=== PATIENT | female | born 1955 | race African-American/Black ===

== ENCOUNTER 2016-05-12 10:00 | Outpatient (RCR) | payer MEDICAID ==
[~2016-05-12 10:00] MED LIST: ALBUTEROL0.83 MG/ML IH; AMITRIPTYLINE H50 M1 PO; ASPIRIN 32325 MG/TAB PO; ATROVENT I0.2 MG/1 M IH; BACTRIM DS 8001 TAB PO; BENADRYL25 M2; BENADRYL25 M2 PO; CLEOCIN HC150 MG/CAP PO; COLACE 100100 MG/CAP PO; CUTIVATE15GMOINT TOP; DAZIDOX10 MG PO; DEPAKOTE ER 50500 MG PO; DEPAKOTE500 MG PO; DESYREL 100MG100 MG PO; DIPHENHYDRAMINE25 MG PO; FLAGYL500 MG PO; FLONASE NASAL S16 GM NS; FLOVENT 110MCG7.9 GM IH; IMODIUM 2MG CAPS2 MG PO; IPRATROPIUM BROM3 M1 IH; IRON324 M1 PO; IRON325 M1 PO; LASIX 40MG TABL40 MG PO; LASTACAFT OP; LEVAQUIN 5500 MG/TA1 PO; LEVAQUIN 750MG750 M1 PO; LOPRESSOR 225 MG/TAB PO; LUNESTA 1MG TAB1 MG; LUNESTA 1MG TAB1 MG PO; MEDROL 4MG DOSPA4 MG PO; NIZORAL CREAM15 GM TP; NORCO 325 MG-51 TAB PO; NORCO 325 MG-7.1 TAB PO; OPTIVE SENSITI0.4 ML OP; OXYCONTIN 20MG20 MG PO; PATADAY 2.5 ML2.5 ML OP; PATADAY 2.5 ML2.5 ML OU; PATANOL OPHTHALM5 ML OU; PERCOCET 325 MG1 TA2 PO; PERCOCET 325 MG1 TAB PO; PREDNISONE20 MG PO; PRENATAL PO; PRENATAL VITAMI1 TAB PO; PRENATAL1 TA2 PO; PRILOSEC 20MG20 MG PO; PRINIVIL10 MG PO; PRINIVIL5 MG PO; PRO AIR INH; PROAIR HFA0.09 MG/AC IH; PROZAC 20MG20 MG PO; PROZAC PO; QVAR0.04 MG/AC IH; REFRESH 1 ML1 ML OP; RT ALBUTER2.5 MG/0.5 IH; RT SPIRIVA18 MCG IH; SYNTHROID 0.0.025 MG PO; SYNTHROID0.05 MG/TA PO; TOPROL XL 25MG25 MG PO; TYLENOL 325MG325 MG PO; UNABLE; VALIUM 10MG10 MG/TAB PO; VALIUM 2MG T2 MG/TAB PO; ZESTRIL 20MG TA20 MG PO; ZITHROMAX Z PA250 MG PO; ZOCOR 20MG20 MG PO; ZOFRAN 4MG T4 MG/TAB PO; ZOFRAN ODT4 MG PO; ZYRTEC 10MG10 MG PO; [UNRECOGNIZED DRUG - CODE] PO; [UNRECOGNIZED DRUG - OTHER] PO
== END 2016-05-15 13:24 | disposition home or self-care (01) ==
LOC: MKS.ESL.PT 10:00
DX: R26.81 Unsteadiness on feet (principal)
CPT/HCPCS: G0283-GP

== ENCOUNTER → 2016-05-15 | Outpatient (CLI) | payer MEDICAID ==
[~2016-05-15] MED LIST changes: +BUSPAR5 MG PO; +DOXYCYCLINE 10100 MG PO
== END ==
LOC: MC.RAD 12:54
DX: Z12.31 Encounter for screening mammogram for malignant neoplasm of breast (principal)

== ENCOUNTER 2016-05-23 07:55 | Day surgery (SDC) | payer MEDICAID ==
[2016-05-23] VITALS (8 sets, daily range): BP systolic 94–134; BP diastolic 43–83; PULSE 50–64; TEMP 96.8
[~2016-05-23] VITALS: Ht 170.2 cm; Wt 108.2 kg
[~2016-05-23 07:55] MED LIST changes: -BUSPAR5 MG PO; -DOXYCYCLINE 10100 MG PO
== END 2016-05-23 13:50 | disposition home or self-care (01) ==
LOC: SDCO 07:55
DX: K62.5 Hemorrhage of anus and rectum (principal); K64.8 Other hemorrhoids; K64.4 Residual hemorrhoidal skin tags; Z96.641 Presence of right artificial hip joint; Z96.651 Presence of right artificial knee joint
CPT/HCPCS: J0690; J1100; J1885; J2250; J2405; J2704; J3010; J7120

== ENCOUNTER 2016-11-07 13:40 | Emergency (ER) | payer MEDICAID ==
[~2016-11-07] VITALS: Ht 170.2 cm; Wt 104.5 kg
[2016-11-07 13:45] VITALS: TEMP 99.1
[2016-11-07] MEDS ORDERED: BUSPAR5 MG PO (13:52)
[2016-11-07 14:27] LABS: BASO % 0.3 % (0.0-2.0); EOS # 0.2 (0.0-0.7); EOS % 1.4 % (0-4.0); GRAN # 6.2 (1.4-6.5); GRAN % 56.9 % (42.2-75.2); HEMOGLOBIN 13.8 g/dl (12.5-16.0); MEAN CELL VOLUME 98 fl (80.0-100.0); MEAN CORPUSCULAR HEMOGLOBIN 32 pg (27.0-31.0); MEAN CORPUSCULAR HGB CONC 33 g/dl (33.0-37.0); MEAN PLATELET VOLUME 11.9 fl (7.4-10.4); MONO # 0.4 (0.1-0.6); MONO % 4.1 % (1.7-9.3); PLATELET COUNT 246 K/mm3 (130-400); REDCELL DISTRIBUTION WIDTH-CV 14.6 % (11.5-14.5); WHITE BLOOD COUNT 10.8 K/mm3 (4.8-10.8)
[2016-11-07 14:41] LABS: ADJUSTED CALCIUM 9.6 mg/dL (8.4-10.2); ALBUMIN 4.1 gm/dL (3.5-5.0); BILIRUBIN,TOTAL 0.4 mg/dL (0.0-1.0); CALCIUM 9.7 mg/dL (8.4-10.2); CREATININE, serum 0.76 mg/dL (0.52-1.25); POTASSIUM 3.6 mmol/L (3.4-5.0); TOTAL PROTEIN 7.9 gm/dL (6.4-8.2)
[2016-11-07] MEDS ORDERED: PREDNISONE20 MG PO (16:42)
[2016-11-07] MEDS ORDERED: DOXYCYCLINE 10100 MG PO (16:50)
[2016-11-07 17:44] VITALS: BP 119/64; PULSE 74
== END 2016-11-07 17:45 | disposition home or self-care (01) ==
LOC: COL.ER 13:40
PROVIDERS: Emergency Medicine
DX: J44.1 Chronic obstructive pulmonary disease with (acute) exacerbation (principal); Z79.82 Long term (current) use of aspirin
CPT/HCPCS: J1170; J2550; J7512

== ENCOUNTER 2017-03-10 02:24 | Inpatient (IN) | payer MEDICAID ==
[~2017-03-10] VITALS: Ht 170.2 cm; Wt 92.8 kg
[~2017-03-10 02:24] MED LIST changes: +BUSPAR5 MG PO; +DOXYCYCLINE 10100 MG PO
[2017-03-10 02:47] LABS: BASO % 0.1 % (0.0-2.0); GRAN # 7.3 (1.4-6.5); GRAN % 82.5 % (42.2-75.2); HEMATOCRIT 40.3 % (37.0-47.0); HEMOGLOBIN 13.5 g/dl (12.5-16.0); LYMPH # 0.7 (1.2-3.4); LYMPH % 8.2 % (20.0-51.0); MEAN CELL VOLUME 97 fl (80.0-100.0); MEAN CORPUSCULAR HEMOGLOBIN 32 pg (27.0-31.0); MEAN CORPUSCULAR HGB CONC 34 g/dl (33.0-37.0); MEAN PLATELET VOLUME 11.3 fl (7.4-10.4); MONO # 0.8 (0.1-0.6); MONO % 8.8 % (1.7-9.3); PLATELET COUNT 196 K/mm3 (130-400); RED BLOOD COUNT 4.17 M/mm3 (4.10-5.30); REDCELL DISTRIBUTION WIDTH-CV 15.2 % (11.5-14.5)
[2017-03-10 03:13] LABS: ALBUMIN 4.1 gm/dL (3.5-5.0); BILIRUBIN,TOTAL 0.4 mg/dL (0.0-1.0); CALCIUM 9.5 mg/dL (8.4-10.2); CREATININE, serum 0.64 mg/dL (0.52-1.25); POTASSIUM 3.5 mmol/L (3.4-5.0)
[2017-03-10 03:21] LABS: INFLUENZA A NEGATIVE; INFLUENZA B NEGATIVE
[2017-03-10 03:37] LABS: COLLECTION METHOD CLEAN CATCH
[2017-03-10 03:49] LABS: MUCOUS Present /lpf; PH 8 (5-8); URINE APPEARANCE Clear; URINE BACTERIA Rare /hpf; URINE BILIRUBIN Negative (NEGATIVE); URINE BLOOD 2+ (NEGATIVE); URINE COLOR Yellow; URINE GLUCOSE Negative (NEGATIVE); URINE KETONE 1+ (NEGATIVE); URINE LEUKOCYTE ESTERASE Negative (NEGATIVE); URINE NITRATE Negative (NEGATIVE); URINE PROTEIN(semi-quant) Negative (NEGATIVE); URINE RBC >50 /hpf
[2017-03-10] MEDS ORDERED: VALIUM 2MG T2 MG/TAB PO (08:03)
[2017-03-10 08:46] VITALS: BP 111/67; PULSE 77; TEMP 98.6
[2017-03-10 12:04] VITALS: BP 93/49; PULSE 61; TEMP 98.8
[2017-03-10 12:35] VITALS: BP 93/49; PULSE 61; TEMP 98.8
[2017-03-10 15:49] VITALS: BP 122/63; PULSE 92; TEMP 99.5
[2017-03-10 20:20] VITALS: BP 128/59; PULSE 107; TEMP 101.2
[2017-03-11] VITALS (9 sets, daily range): BP systolic 119–134; BP diastolic 7–82; PULSE 97–118; TEMP 98.3–102.1
[2017-03-11 07:40] LABS: BASO % 0.2 % (0.0-2.0); GRAN % 63.9 % (42.2-75.2); HEMATOCRIT 37.4 % (37.0-47.0); HEMOGLOBIN 12.2 g/dl (12.5-16.0); LYMPH # 1.4 (1.2-3.4); LYMPH % 21.5 % (20.0-51.0); MEAN CELL VOLUME 100 fl (80.0-100.0); MEAN CORPUSCULAR HEMOGLOBIN 32 pg (27.0-31.0); MEAN CORPUSCULAR HGB CONC 33 g/dl (33.0-37.0); MEAN PLATELET VOLUME 12.1 fl (7.4-10.4); MONO # 0.9 (0.1-0.6); MONO % 14.1 % (1.7-9.3); PLATELET COUNT 179 K/mm3 (130-400); RED BLOOD COUNT 3.76 M/mm3 (4.10-5.30); REDCELL DISTRIBUTION WIDTH-CV 15.6 % (11.5-14.5)
[2017-03-11 07:54] LABS: CALCIUM 8.5 mg/dL (8.4-10.2); CREATININE, serum 0.73 mg/dL (0.52-1.25); POTASSIUM 3.4 mmol/L (3.4-5.0)
[2017-03-12 00:27] VITALS: BP 108/95; PULSE 130; TEMP 102.8
[2017-03-12 04:35] VITALS: BP 116/66; PULSE 113; TEMP 101.4
[2017-03-12 07:19] LABS: BASO % 0.2 % (0.0-2.0); GRAN # 4.8 (1.4-6.5); GRAN % 54.1 % (42.2-75.2); HEMATOCRIT 37.4 % (37.0-47.0); LYMPH # 3.2 (1.2-3.4); LYMPH % 36.3 % (20.0-51.0); MEAN CELL VOLUME 101 fl (80.0-100.0); MEAN CORPUSCULAR HEMOGLOBIN 32 pg (27.0-31.0); MEAN CORPUSCULAR HGB CONC 32 g/dl (33.0-37.0); MEAN PLATELET VOLUME 11.9 fl (7.4-10.4); MONO # 0.8 (0.1-0.6); MONO % 9.1 % (1.7-9.3); PLATELET COUNT 157 K/mm3 (130-400); RED BLOOD COUNT 3.71 M/mm3 (4.10-5.30); REDCELL DISTRIBUTION WIDTH-CV 15.7 % (11.5-14.5)
[2017-03-12 07:24] LABS: CALCIUM 8.1 mg/dL (8.4-10.2); CREATININE, serum 0.94 mg/dL (0.52-1.25); POTASSIUM 3.6 mmol/L (3.4-5.0)
[2017-03-12 07:30] LABS: HEMOGLOBIN 11.9 g/dl (12.5-16.0)
[2017-03-12 08:03] VITALS: BP 94/61; PULSE 124; TEMP 100.2
[2017-03-12 11:34] VITALS: BP 111/66; PULSE 117; TEMP 100.1
[2017-03-12 15:51] VITALS: BP 100/72; PULSE 106; TEMP 98.6
[2017-03-12 21:17] VITALS: BP 97/62; PULSE 93; TEMP 98.9
[2017-03-13 00:10] VITALS: BP 104/82; PULSE 97; TEMP 99
[2017-03-13 05:17] VITALS: BP 105/57; PULSE 101; TEMP 98.9
[2017-03-13 07:03] LABS: GRAN # 6.4 (1.4-6.5); HEMATOCRIT 38.8 % (37.0-47.0); HEMOGLOBIN 12.2 g/dl (12.5-16.0); LYMPH % 22.1 % (20.0-51.0); MEAN CELL VOLUME 102 fl (80.0-100.0); MEAN CORPUSCULAR HEMOGLOBIN 32 pg (27.0-31.0); MEAN CORPUSCULAR HGB CONC 31 g/dl (33.0-37.0); MONO # 0.5 (0.1-0.6); PLATELET COUNT 182 K/mm3 (130-400); REDCELL DISTRIBUTION WIDTH-CV 15.7 % (11.5-14.5)
[2017-03-13 07:10] LABS: CALCIUM 9.1 mg/dL (8.4-10.2); CREATININE, serum 1.79 mg/dL (0.52-1.25)
[2017-03-13 08:00] VITALS: BP 103/81; PULSE 99; TEMP 98.4
[2017-03-13 11:43] VITALS: BP 109/72; TEMP 98.8
[2017-03-13 12:39] LABS: ALBUMIN 3.9 gm/dL (3.5-5.0); BILIRUBIN,TOTAL 0.3 mg/dL (0.0-1.0); CALCIUM 9.2 mg/dL (8.4-10.2); CREATININE, serum 1.83 mg/dL (0.52-1.25); TOTAL PROTEIN 7.9 gm/dL (6.4-8.2)
[2017-03-13 16:00] VITALS: BP 100/55; PULSE 98; TEMP 98.9
[2017-03-13 16:42] LABS: CALCIUM 8.6 mg/dL (8.4-10.2); CREATININE, serum 1.44 mg/dL (0.52-1.25); POTASSIUM 4.4 mmol/L (3.4-5.0)
[2017-03-13 20:11] VITALS: BP 93/54; PULSE 75; TEMP 98.3
[2017-03-14 00:37] VITALS: BP 118/51; PULSE 74; TEMP 99.4
[2017-03-14 03:04] LABS: COLLECTION METHOD CATHETER
[2017-03-14 03:09] LABS: MUCOUS Present /lpf; PH 6 (5-8); SQUAMOUS EPITHELIAL 0-2 /hpf; URINE APPEARANCE Clear; URINE BACTERIA None Seen /hpf; URINE BILIRUBIN Negative (NEGATIVE); URINE BLOOD Negative (NEGATIVE); URINE COLOR Yellow; URINE GLUCOSE Negative (NEGATIVE); URINE KETONE Negative (NEGATIVE); URINE LEUKOCYTE ESTERASE Negative (NEGATIVE); URINE NITRATE Negative (NEGATIVE); URINE PROTEIN(semi-quant) Negative (NEGATIVE); URINE RBC 0-2 /hpf; URINE UROBILINOGEN Negative (NEGATIVE)
[2017-03-14 07:28] LABS: GRAN # 5.1 (1.4-6.5); LYMPH # 2.3 (1.2-3.4); LYMPH % 28.4 % (20.0-51.0); MEAN CELL VOLUME 101 fl (80.0-100.0); MEAN CORPUSCULAR HGB CONC 31 g/dl (33.0-37.0); MEAN PLATELET VOLUME 12.1 fl (7.4-10.4); MONO # 0.5 (0.1-0.6); MONO % 6.2 % (1.7-9.3); PLATELET COUNT 144 K/mm3 (130-400); RED BLOOD COUNT 3.34 M/mm3 (4.10-5.30); REDCELL DISTRIBUTION WIDTH-CV 15.9 % (11.5-14.5)
[2017-03-14 07:39] LABS: HEMATOCRIT 33.8 % (37.0-47.0); HEMOGLOBIN 10.6 g/dl (12.5-16.0); MEAN CORPUSCULAR HEMOGLOBIN 32 pg (27.0-31.0)
[2017-03-14 07:50] LABS: CALCIUM 8.7 mg/dL (8.4-10.2); CREATININE, serum 0.93 mg/dL (0.52-1.25); POTASSIUM 4.4 mmol/L (3.4-5.0)
[2017-03-14 08:07] VITALS: BP 102/68; PULSE 80; TEMP 98.6
[2017-03-14 12:09] VITALS: BP 108/58; PULSE 86; TEMP 98.8
[2017-03-14 17:10] VITALS: BP 106/62; PULSE 85; TEMP 98.7
[2017-03-14 19:34] VITALS: BP 116/57; PULSE 67; TEMP 98.6
[2017-03-15 00:35] VITALS: BP 122/71; PULSE 68; TEMP 98.4
[2017-03-15 02:48] VITALS: BP 136/66; PULSE 66; TEMP 98.2
[2017-03-15 07:38] VITALS: BP 110/62; PULSE 60; TEMP 97.9
[2017-03-15 07:59] LABS: MEAN CELL VOLUME 100 fl (80.0-100.0); MEAN CORPUSCULAR HGB CONC 31 g/dl (33.0-37.0); MEAN PLATELET VOLUME 12.3 fl (7.4-10.4); PLATELET COUNT 163 K/mm3 (130-400); RED BLOOD COUNT 3.43 M/mm3 (4.10-5.30); REDCELL DISTRIBUTION WIDTH-CV 15.5 % (11.5-14.5)
[2017-03-15 08:12] LABS: CALCIUM 8.8 mg/dL (8.4-10.2); CREATININE, serum 0.74 mg/dL (0.52-1.25); POTASSIUM 4.1 mmol/L (3.4-5.0)
[2017-03-15 08:21] LABS: HEMATOCRIT 34.2 % (37.0-47.0); HEMOGLOBIN 10.7 g/dl (12.5-16.0); MEAN CORPUSCULAR HEMOGLOBIN 31 pg (27.0-31.0)
[2017-03-15] MEDS ORDERED: BENADRYL25 M2 PO (10:10)
[2017-03-15] MEDS ORDERED: ZITHROMAX500 M2 PO (10:11)
[2017-03-15] MEDS ORDERED: DEEP SEA 45 ML45 ML NS (10:14)
[2017-03-15] MEDS ORDERED: PREDNISONE10 MG PO ×2 (10:19→11:38)
[2017-03-15 11:23] LABS: BAND 24 % (0-10); HYPOCHROMIA 2+; LYMPHOCYTE 14 % (20.0-51.0); NEUTROPHILS 53 % (42.0-75.2); PLATELET ESTIMATE NORMAL (NORMAL)
== END 2017-03-15 13:30 | disposition home or self-care (01) | DRG 194 ==
LOC: COL.ER 02:24 → MEDICAL 07:10
PROVIDERS: Emergency Medicine; Internal Medicine Pulmonary Disease; Nurse Practitioner; Physician Assistant
DX: J18.9 Pneumonia, unspecified organism (principal); J44.1 Chronic obstructive pulmonary disease with (acute) exacerbation; N17.9 Acute kidney failure, unspecified; F11.921 Opioid use, unspecified with intoxication delirium; I10 Essential (primary) hypertension; E87.6 Hypokalemia; F17.210 Nicotine dependence, cigarettes, uncomplicated; J06.9 Acute upper respiratory infection, unspecified; G89.29 Other chronic pain; R04.0 Epistaxis
CPT/HCPCS: 99222-AI; 99232-AI; 99233-AI; 99239; G0378; J0456; J0696; J1630; J1644; J1885; J1940; J2550; J2930; J3480; J7030; J7040; J7050; J7512; Q9967

== ENCOUNTER → 2017-05-17 | Outpatient (CLI) | payer MEDICAID ==
[~2017-05-17] MED LIST changes: +DEEP SEA 45 ML45 ML NS; +PREDNISONE10 MG PO; +ZITHROMAX500 M2 PO
== END ==
LOC: MC.RAD 09:33
DX: Z12.31 Encounter for screening mammogram for malignant neoplasm of breast (principal)

== ENCOUNTER → 2017-05-25 | Outpatient (CLI) | payer MEDICAID | LOC: COL.RAD 10:59 | DX: M43.16 Spondylolisthesis, lumbar region (principal); M48.061 Spinal stenosis, lumbar region without neurogenic claudication; G31.9 Degenerative disease of nervous system, unspecified; N28.89 Other specified disorders of kidney and ureter; Z98.890 Other specified postprocedural states; D21.6 Benign neoplasm of connective and other soft tissue of trunk, unspecified | CPT/HCPCS: Q9967 ==

== ENCOUNTER → 2017-09-11 | Outpatient (CLI) | payer MEDICAID | LOC: COL.RAD 09-06 09:45 | DX: D69.6 Thrombocytopenia, unspecified (principal) ==

== ENCOUNTER → 2017-12-03 | Outpatient (CLI) | payer MEDICAID | LOC: COL.RAD 08:55 | DX: M16.12 Unilateral primary osteoarthritis, left hip (principal) | CPT/HCPCS: J3301; Q9967 ==

== ENCOUNTER 2018-04-22 15:36 | Emergency (ER) | payer MEDICAID ==
[~2018-04-22] VITALS: Ht 170.2 cm; Wt 110.5 kg
[2018-04-22 15:47] VITALS: TEMP 98.9
[2018-04-22 16:35] LABS: BASO % 0.1 % (0.0-2.0); EOS # 0.2 (0.0-0.7); EOS % 1.3 % (0-4.0); GRAN # 11.3 (1.4-6.5); GRAN % 67.8 % (42.2-75.2); HEMATOCRIT 42.6 % (37.0-47.0); HEMOGLOBIN 13.8 g/dl (12.5-16.0); LYMPH # 4.1 (1.2-3.4); LYMPH % 24.7 % (20.0-51.0); MEAN CELL VOLUME 97 fl (80.0-100.0); MEAN CORPUSCULAR HEMOGLOBIN 32 pg (27.0-31.0); MEAN CORPUSCULAR HGB CONC 32 g/dl (33.0-37.0); MEAN PLATELET VOLUME 11.9 fl (7.4-10.4); MONO % 5.7 % (1.7-9.3); PLATELET COUNT 225 K/mm3 (130-400); RED BLOOD COUNT 4.38 M/mm3 (4.10-5.30); REDCELL DISTRIBUTION WIDTH-CV 15.2 % (11.5-14.5)
[2018-04-22 16:51] LABS: ALBUMIN 4.1 gm/dL (3.5-5.0); BILIRUBIN,TOTAL 0.4 mg/dL (0.0-1.0); CALCIUM 9.2 mg/dL (8.4-10.2); CREATININE, serum 0.78 mg/dL (0.52-1.25); POTASSIUM 3.7 mmol/L (3.4-5.0); TOTAL PROTEIN 8.4 gm/dL (6.4-8.2)
[2018-04-22 17:02] LABS: C-REACTIVE PROTEIN 15.7 mg/dL (0.0-0.9)
[2018-04-22] MEDS ORDERED: LEVAQUIN 5500 MG/TA1 PO (17:50)
[2018-04-22] MEDS ORDERED: PREDNISONE20 MG PO (17:50)
[2018-04-22] MEDS ORDERED: ZOFRAN ODT4 MG PO (17:50)
[2018-04-22 19:10] VITALS: BP 93/64; PULSE 92
== END 2018-04-22 19:10 | disposition home or self-care (01) ==
LOC: COL.ER 15:36
PROVIDERS: Emergency Medicine
DX: J40 Bronchitis, not specified as acute or chronic (principal); R42 Dizziness and giddiness; R11.2 Nausea with vomiting, unspecified; J44.9 Chronic obstructive pulmonary disease, unspecified; I10 Essential (primary) hypertension; Z79.51 Long term (current) use of inhaled steroids; Z79.82 Long term (current) use of aspirin; Z88.0 Allergy status to penicillin; Z87.891 Personal history of nicotine dependence
CPT/HCPCS: J2405; J7030; J7512

== ENCOUNTER → 2018-05-30 | Outpatient (CLI) | payer MEDICAID | LOC: MHCPAIN 12:48 | DX: G89.29 Other chronic pain (principal); M47.817 Spondylosis without myelopathy or radiculopathy, lumbosacral region; M54.16 Radiculopathy, lumbar region; M53.3 Sacrococcygeal disorders, not elsewhere classified; M48.061 Spinal stenosis, lumbar region without neurogenic claudication | CPT/HCPCS: G0463 ==

== ENCOUNTER → 2018-06-04 | Outpatient (CLI) | payer MEDICAID | LOC: MC.RAD 09:36 | DX: Z12.31 Encounter for screening mammogram for malignant neoplasm of breast (principal) ==

== ENCOUNTER 2018-06-18 11:01 | Emergency (ER) | payer MEDICAID ==
[~2018-06-18] VITALS: Ht 167.6 cm; Wt 110.5 kg
[2018-06-18 12:19] LABS: BASO % 0.1 % (0.0-2.0); EOS # 0.1 (0.0-0.7); EOS % 0.5 % (0-4.0); GRAN # 9.2 (1.4-6.5); HEMATOCRIT 39.8 % (37.0-47.0); HEMOGLOBIN 12.9 g/dl (12.5-16.0); LYMPH # 3.6 (1.2-3.4); LYMPH % 26.7 % (20.0-51.0); MEAN CELL VOLUME 98 fl (80.0-100.0); MEAN CORPUSCULAR HEMOGLOBIN 32 pg (27.0-31.0); MEAN CORPUSCULAR HGB CONC 32 g/dl (33.0-37.0); MEAN PLATELET VOLUME 11.7 fl (7.4-10.4); MONO # 0.5 (0.1-0.6); MONO % 3.4 % (1.7-9.3); PLATELET COUNT 238 K/mm3 (130-400); RED BLOOD COUNT 4.07 M/mm3 (4.10-5.30); REDCELL DISTRIBUTION WIDTH-CV 16.2 % (11.5-14.5)
[2018-06-18 12:22] LABS: INR 1.1 (0.8-3.0); PROTHROMBIN TIME 12.8 SECONDS (9.7-12.8)
[2018-06-18 12:26] LABS: ALANINE AMINOTRANSFERASE < 6 U/L (9-52); ALBUMIN 3.9 gm/dL (3.5-5.0); ALKALINE PHOSPHATASE 96 U/L (50-136); ANION GAP 7 mmol/L (7-16); AST,SGOT 16 U/L (15-37); BILIRUBIN,TOTAL 0.3 mg/dL (0.0-1.0); BLOOD UREA NITROGEN 13 mg/dL (7-17); CALCIUM 9.1 mg/dL (8.4-10.2); CARBON DIOXIDE 31 mmol/L (22-30); CHLORIDE 105 mmol/L (98-107); CREATININE, serum 0.71 (0.52-1.25); GLUCOSE 108 mg/dL (74-106); POTASSIUM 3.4 mmol/L (3.4-5.0); SODIUM 142 mmol/L (137-145); TOTAL PROTEIN 7.8 gm/dL (6.4-8.2)
[2018-06-18 12:37] LABS: TROPONIN-I < 0.012 ng/mL (0.000-0.035)
[2018-06-18] MEDS ORDERED: ZITHROMAX Z PA250 MG PO (12:54)
[2018-06-18] MEDS ORDERED: PREDNISONE20 MG PO (12:54)
[2018-06-18 13:40] VITALS: TEMP 98.8
[2018-06-18 14:52] VITALS: BP 138/78; PULSE 98
== END 2018-06-18 14:54 | disposition home or self-care (01) ==
LOC: COL.ER 11:01
PROVIDERS: Emergency Medicine
DX: J44.1 Chronic obstructive pulmonary disease with (acute) exacerbation (principal); I10 Essential (primary) hypertension; Z79.51 Long term (current) use of inhaled steroids; F17.210 Nicotine dependence, cigarettes, uncomplicated
CPT/HCPCS: J1200; J2310; J2765; J2930; J3475; J7030

== ENCOUNTER → 2019-02-17 | Outpatient (CLI) | payer MEDICAID ==
[~2019-02-17] MED LIST changes: +ALBUTEROL0.83 MG/ML INH; +DICLOZOR1 EACH TOP; +FLOVENT 110MCG7.9 GM INH; +IPRATROPIUM BROM3 M1 INH; +PROAIR HFA0.09 MG/AC INH; +QVAR REDIHALE10.6 GM INH; +RT ADVAIR 228 DISKUS INH; +RT SPIRIVA18 MCG PO
== END ==
LOC: COL.LAB 11:23
DX: J44.9 Chronic obstructive pulmonary disease, unspecified (principal)

== ENCOUNTER 2019-03-15 12:16 | Inpatient (IN) | payer MEDICAID ==
[~2019-03-15] VITALS: Ht 170.2 cm; Wt 99.6 kg
[2019-03-15] VITALS (131 sets, daily range): BP systolic 124; BP diastolic 72; PULSE 91; TEMP 98; O2SAT 95–100
[2019-03-15 13:26] LABS: BASO % 0.2 % (0.0-2.0); EOS % 0.3 % (0-4.0); GRAN # 7.1 (1.4-6.5); GRAN % 72.2 % (42.2-75.2); HEMATOCRIT 41.6 % (37.0-47.0); HEMOGLOBIN 13.6 g/dl (12.5-16.0); LYMPH # 1.9 (1.2-3.4); LYMPH % 18.9 % (20.0-51.0); MEAN CELL VOLUME 97 fl (80.0-100.0); MEAN CORPUSCULAR HEMOGLOBIN 32 pg (27.0-31.0); MEAN CORPUSCULAR HGB CONC 33 g/dl (33.0-37.0); MEAN PLATELET VOLUME 11.6 fl (7.4-10.4); MONO # 0.8 (0.1-0.6); MONO % 8.1 % (1.7-9.3); PLATELET COUNT 259 K/mm3 (130-400); RED BLOOD COUNT 4.31 M/mm3 (4.10-5.30); REDCELL DISTRIBUTION WIDTH-CV 15.3 % (11.5-14.5)
[2019-03-15 13:40] LABS: ALANINE AMINOTRANSFERASE 11 U/L (9-52); ALKALINE PHOSPHATASE 86 U/L (50-136); ANION GAP 6 mmol/L (7-16); AST,SGOT 25 U/L (15-37); BILIRUBIN,TOTAL 0.5 mg/dL (0.0-1.0); BLOOD UREA NITROGEN 8 mg/dL (7-17); C-REACTIVE PROTEIN 4.4 mg/dL (0.0-0.9); CALCIUM 9.1 mg/dL (8.4-10.2); CARBON DIOXIDE 27 mmol/L (22-30); CHLORIDE 106 mmol/L (98-107); GLUCOSE 95 mg/dL (74-106); LIPASE 38 U/L (23-300); POTASSIUM 4.4 mmol/L (3.4-5.0); SODIUM 139 mmol/L (137-145); TOTAL PROTEIN 8.3 gm/dL (6.4-8.2)
[2019-03-15 13:49] LABS: TROPONIN-I < 0.012 ng/mL (0.000-0.035)
[2019-03-15 15:15] LABS: COLLECTION METHOD CLEAN CATCH
[2019-03-15 15:22] LABS: MUCOUS Present /lpf; PH 6 (5-8); URINE APPEARANCE Hazy; URINE BACTERIA Rare /hpf; URINE BILIRUBIN Negative (NEGATIVE); URINE BLOOD 2+ (NEGATIVE); URINE COLOR Yellow; URINE GLUCOSE Negative (NEGATIVE); URINE KETONE 1+ (NEGATIVE); URINE LEUKOCYTE ESTERASE Trace (NEGATIVE); URINE NITRATE Negative (NEGATIVE); URINE PROTEIN(semi-quant) 2+ (NEGATIVE); URINE RBC 20-50 /hpf; URINE UROBILINOGEN Negative (NEGATIVE)
[2019-03-15 16:33] LABS: ARTERIAL BLD GAS O2 SATURATION 96.1 % (92-100); ARTERIAL BLD GAS TCO2 CT 29.5; ARTERIAL BLOOD GAS BASE EXCESS 0.8 (-2-2); ARTERIAL BLOOD GAS HCO3 27.8 meq/L (22-26); ARTERIAL BLOOD GAS PCO2 54.7 mmHg (35-45); ARTERIAL BLOOD GAS PO2 82.5 mmHg (80-100); ARTERIAL BLOOD GAS pH 7.32 (7.35-7.45)
[2019-03-15 19:15] LABS: ARTERIAL BLD GAS O2 SATURATION 95.4 % (92-100); ARTERIAL BLD GAS TCO2 CT 28.9; ARTERIAL BLOOD GAS BASE EXCESS -0.1 (-2-2); ARTERIAL BLOOD GAS HCO3 27.2 meq/L (22-26); ARTERIAL BLOOD GAS PCO2 55.3 mmHg (35-45); ARTERIAL BLOOD GAS pH 7.31 (7.35-7.45)
[2019-03-15] MEDS ORDERED: DALIRESP500 MCG PO (21:23)
[2019-03-15] MEDS ORDERED: VOLTAREN GEL 1%1 TU TP (21:25)
[2019-03-15] MEDS ORDERED: DEPAKOTE ER 50500 MG PO ×2 (21:26)
[2019-03-15] MEDS ORDERED: DUREZOL 5 ML5 ML OU (21:27)
[2019-03-15] MEDS ORDERED: FLOVENT 110MCG7.9 GM IH (21:29)
[2019-03-15] MEDS ORDERED: FLONASEALLERGY NS (21:30)
[2019-03-15] MEDS ORDERED: CUTIVATE TOP (21:30)
[2019-03-15] MEDS ORDERED: [UNRECOGNIZED DRUG - OTHER] TOP (21:30)
[2019-03-15] MEDS ORDERED: ATARAX 10MG10 MG/TAB PO (21:33)
[2019-03-15] MEDS ORDERED: ANTI-DIARRHEAL2 MG PO (21:35)
[2019-03-15] MEDS ORDERED: ANTIVERT 25MG25 MG PO (21:37)
[2019-03-15] MEDS ORDERED: NARCAN4 MG NS (21:38)
[2019-03-15] MEDS ORDERED: PATADAY 2.5 ML2.5 ML OU (21:38)
[2019-03-15] MEDS ORDERED: PERCOCET 325 MG1 TAB PO (21:40)
[2019-03-15] MEDS ORDERED: PROAIR HFA0.09 MG/AC IH (21:40)
[2019-03-15] MEDS ORDERED: ALBUTEROL0.83 MG/ML IH (21:41)
[2019-03-15] MEDS ORDERED: SYSTANE 0.4%-0.1 SOL OP (21:44)
[2019-03-15 22:04] LABS: ARTERIAL BLD GAS O2 SATURATION 95.6 % (92-100); ARTERIAL BLD GAS TCO2 CT 27.3; ARTERIAL BLOOD GAS BASE EXCESS -0.6 (-2-2); ARTERIAL BLOOD GAS HCO3 25.8 meq/L (22-26); ARTERIAL BLOOD GAS PCO2 49.3 mmHg (35-45); ARTERIAL BLOOD GAS pH 7.34 (7.35-7.45)
[2019-03-16] VITALS (604 sets, daily range): BP systolic 92–114; BP diastolic 41–67; PULSE 78–95; TEMP 97–98.5; O2SAT 57–100
[2019-03-16 05:12] LABS: ARTERIAL BLD GAS O2 SATURATION 96.3 % (92-100); ARTERIAL BLD GAS TCO2 CT 27.6; ARTERIAL BLOOD GAS BASE EXCESS -0.9 (-2-2); ARTERIAL BLOOD GAS PCO2 52.7 mmHg (35-45); ARTERIAL BLOOD GAS pH 7.31 (7.35-7.45)
[2019-03-16 05:22] LABS: BASO % 0.2 % (0.0-2.0); GRAN # 5.2 (1.4-6.5); GRAN % 77.8 % (42.2-75.2); HEMOGLOBIN 11.8 g/dl (12.5-16.0); LYMPH # 1.2 (1.2-3.4); LYMPH % 18.7 % (20.0-51.0); MEAN CELL VOLUME 98 fl (80.0-100.0); MEAN CORPUSCULAR HEMOGLOBIN 32 pg (27.0-31.0); MEAN CORPUSCULAR HGB CONC 32 g/dl (33.0-37.0); MEAN PLATELET VOLUME 11.1 fl (7.4-10.4); MONO # 0.2 (0.1-0.6); PLATELET COUNT 194 K/mm3 (130-400); RED BLOOD COUNT 3.72 M/mm3 (4.10-5.30); REDCELL DISTRIBUTION WIDTH-CV 15.3 % (11.5-14.5)
[2019-03-16 05:23] LABS: HEMATOCRIT 36.4 % (37.0-47.0)
[2019-03-16 05:30] LABS: ALBUMIN 3.4 gm/dL (3.5-5.0); BILIRUBIN,TOTAL 0.1 mg/dL (0.0-1.0); CALCIUM 8.5 mg/dL (8.4-10.2); CREATININE, serum 0.74 (0.52-1.25); POTASSIUM 3.9 mmol/L (3.4-5.0); TOTAL PROTEIN 7.2 gm/dL (6.4-8.2)
--- NOTE | 2019-03-16 07:30 | NUR ---
REPORT RECEIVED FROM ALEKSEY FOWLER. PATIENT RESTING IN BED WITH BIPAP IN PLACE. CARE TAKEN OVER AT THIS TIME.
--- NOTE | 2019-03-16 12:28 | NUR ---
PATIENT TRANSFERRED TO ROOM 309. ALEKSEY HOWELL GIVEN REPORT PRIOR TO TRANSFER.
--- NOTE | 2019-03-16 13:00 | NUR ---
Pt arrived to floor at this time from ICU. Able to transfer to bed independently. Assissted to shower, got up with walker. o2 at 4L NC. Will continue to monitor.
--- NOTE | 2019-03-16 18:33 | NUR ---
Pt resting in bed, wants to have bipap so she can sleep, called RT to come and hook her up to the machine and they will be here shortly. pt resting in bed, IV to L finger is problematic but still working, will hold off until AIV services available. Denies needs, will give bedside shift report to nightshift nurse who lexie resume care.
--- NOTE | 2019-03-17 02:45 | NUR ---
ASSESSMENT COMPLETE. RESTING IN BED, WATCHING TV. INT SITE RIGHT HAND REMOVED @ 1935 PER PT INSISTENCE. PT EDUCATED PRIOR TO DISCONTINING INT THAT ANOTHER INT WOULD NEED TO BE PLACED. PT CONT TO INSIST THAT SITE WAS TOO PAINFUL TO MAINTAIN, ALTHOUGH PATENT WITHOUT APPARENT PHELBITIS AND NO INFILTRATION. AT TIME OF ASSESSMENT PT REQUESTS THAT INT BE PLACED DONALD SO SHE "CAN GO TO SLEEP." INFORMED THAT EVERY EFFORT WOULD BE MADE TO ACCOMMODATE HER NEEDS. DENIES OTHER NEEDS AT THIS TIME.
[2019-03-17 03:35] VITALS: BP 117/67; PULSE 85; TEMP 97.8
[2019-03-17 06:13] LABS: ARTERIAL BLD GAS O2 SATURATION 94.3 % (92-100); ARTERIAL BLD GAS TCO2 CT 26.3; ARTERIAL BLOOD GAS BASE EXCESS -1.3 (-2-2); ARTERIAL BLOOD GAS HCO3 24.8 meq/L (22-26); ARTERIAL BLOOD GAS PCO2 47.5 mmHg (35-45); ARTERIAL BLOOD GAS PO2 74.3 mmHg (80-100); ARTERIAL BLOOD GAS pH 7.34 (7.35-7.45)
[2019-03-17 07:20] VITALS: BP 116/53; PULSE 60; TEMP 98.1
[2019-03-17 08:02] LABS: CALCIUM 8.7 mg/dL (8.4-10.2); CREATININE, serum 0.68 (0.52-1.25); POTASSIUM 4.1 mmol/L (3.4-5.0)
[2019-03-17 08:08] LABS: BASO % 0.1 % (0.0-2.0); GRAN # 5.3 (1.4-6.5); GRAN % 61.8 % (42.2-75.2); HEMOGLOBIN 10.5 g/dl (12.5-16.0); LYMPH # 2.7 (1.2-3.4); LYMPH % 31.4 % (20.0-51.0); MEAN CELL VOLUME 99 fl (80.0-100.0); MEAN CORPUSCULAR HEMOGLOBIN 31 pg (27.0-31.0); MEAN CORPUSCULAR HGB CONC 32 g/dl (33.0-37.0); MEAN PLATELET VOLUME 11.6 fl (7.4-10.4); MONO # 0.6 (0.1-0.6); MONO % 6.5 % (1.7-9.3); PLATELET COUNT 210 K/mm3 (130-400); RED BLOOD COUNT 3.35 M/mm3 (4.10-5.30); REDCELL DISTRIBUTION WIDTH-CV 15.4 % (11.5-14.5)
--- NOTE | 2019-03-17 09:05 | NUR ---
patient did not wear BIPAP LAST NIGHT
[2019-03-17 10:53] VITALS: BP 119/50; PULSE 81; TEMP 98.7
--- NOTE | 2019-03-17 12:46 | NUR ---
RIZWAN HILARIO NOTIFIED OF NO IV ACCESS AND DIFFICULT STICK. COMMUNICATION THAT IV ANTIBIOTICS WILL BE CHANGED TO ORAL AND NOT TO OBTAIN IV ACCESS AT THIS TIME.
[2019-03-17 15:53] VITALS: BP 113/60; PULSE 92; TEMP 99.2
--- NOTE | 2019-03-17 16:35 | NUR ---
SW met with the patient to complete initial assessment. The patient lives in [place] with her daughters and a granddaughter. The patient has a walker and uses oxygen (4L) and receives supplies from [facility]. The patient receives assistance with ADLs from her daughter. The daughter is employed through [employer]. The patient's PCP is Dr. Currie and patient receives medications from [facility] with no difficulties. The patient does not have advanced directives in the EMR, DPOA-HC form provided. The patient plans to return home upon discharge with her daughter, Leigh Alanis providing transportation. There are no additional needs at this time.
[2019-03-17 20:39] VITALS: BP 116/57; PULSE 91; TEMP 98.1
[2019-03-18 00:25] VITALS: BP 127/58; PULSE 69; TEMP 99
--- NOTE | 2019-03-18 01:47 | NUR ---
PATIENT DOING WELL TONIGHT. TOOK SCHEDULED MEDICATIONS WITHOUT DIFFICULTY. 4 L O2 VIA NC INFUSING, PATIENT WEARING BIPAP WHEN SLEEPING. DENIES PAIN THROUGHOUT NIGHT. REQUESTED SHOWER, PATIENT ASSISTED WITH SETUP AND GETTING INTO SHOWER. NO FURTHER NEEDS AT THIS TIME. WILL CONTINUE TO MONITOR.
[2019-03-18 05:30] VITALS: BP 120/63; PULSE 72; TEMP 97.6
--- NOTE | 2019-03-18 07:28 | NUR ---
PATIENT WORE BIPAP ALL NIGHT.
[2019-03-18 07:51] VITALS: BP 110/60; PULSE 87; TEMP 98.8
[2019-03-18] MEDS ORDERED: OMNICEF 300MG300 MG PO (07:55)
[2019-03-18] MEDS ORDERED: MUCUS RELIEF400 M1 PO (07:57)
[2019-03-18] MEDS ORDERED: ZITHROMAX500 M2 PO (08:59)
[2019-03-18] MEDS ORDERED: PREDNISONE20 MG PO (09:04)
[2019-03-18 09:09] LABS: BASO % 0.2 % (0.0-2.0); EOS % 0.2 % (0-4.0); GRAN # 7.1 (1.4-6.5); GRAN % 56.8 % (42.2-75.2); HEMOGLOBIN 11.1 g/dl (12.5-16.0); LYMPH # 4.4 (1.2-3.4); MEAN CELL VOLUME 96 fl (80.0-100.0); MEAN CORPUSCULAR HEMOGLOBIN 32 pg (27.0-31.0); MEAN CORPUSCULAR HGB CONC 33 g/dl (33.0-37.0); MEAN PLATELET VOLUME 11.9 fl (7.4-10.4); MONO # 0.9 (0.1-0.6); MONO % 7.3 % (1.7-9.3); PLATELET COUNT 176 K/mm3 (130-400); RED BLOOD COUNT 3.52 M/mm3 (4.10-5.30); REDCELL DISTRIBUTION WIDTH-CV 15.4 % (11.5-14.5)
[2019-03-18 09:33] LABS: HEMATOCRIT 33.8 % (37.0-47.0)
--- NOTE | 2019-03-18 09:45 | NUR ---
Diving Coach met with patient who is to discharge home today. Patient would like to complete DPOA- paperwork and SW provided assistance. Patient designated her daughter, Leigh Alanis. SW provided patient with original and copies and placed copy on chart.
[2019-03-18 09:48] LABS: CALCIUM 8.8 mg/dL (8.4-10.2); CREATININE, serum 0.63 (0.52-1.25); POTASSIUM 3.5 mmol/L (3.4-5.0)
--- NOTE | 2019-03-18 15:01 | NUR ---
Cloud Security Architect was notified by RNChristina that patient does not have transportation until later this evening. SW called patient's [employer] [place] transportation provider and scheduled transportation for 1510. Transportation will contact Christina when they arrive. Patient agreeable to this transportation.
--- NOTE | 2019-03-18 16:35 | NUR ---
PATIENT DC TO HOME @ 1635. LEFT VIA MEDICARE TRANSPORTATION. LEFT UNIT VIA ACCOMPANIED BY BAKARI RYDER. PRINTED DC INSTRUCTIONS TO INCLUDE MEDICATIONS, FOLLOW UP, AND HOSPITAL DIAGNOSIS REVIEWED WITH PATIENT. ALL QUESTIONS AND COCNERNS ADDRESSED AT END OF REVIEW.
== END 2019-03-18 16:35 | disposition home or self-care (01) | DRG 177 ==
LOC: COL.ER 12:16 → ICU 18:24 → MEDICAL 18:24
PROVIDERS: Emergency Medicine; Internal Medicine Pulmonary Disease; Nurse Practitioner Family; ADMIT Internal Medicine
PROC: 5A09357 Assistance with Respiratory Ventilation, Less than 24 Consecutive Hours, Continuous Positive Airway Pressure (ICD-10-PCS; principal; 2019-03-18)
DX: J15.5 Pneumonia due to Escherichia coli (principal); J96.21 Acute and chronic respiratory failure with hypoxia; J96.22 Acute and chronic respiratory failure with hypercapnia; J44.1 Chronic obstructive pulmonary disease with (acute) exacerbation; J90 Pleural effusion, not elsewhere classified; J12.81 Pneumonia due to SARS-associated coronavirus; G89.29 Other chronic pain; G43.909 Migraine, unspecified, not intractable, without status migrainosus; G40.909 Epilepsy, unspecified, not intractable, without status epilepticus; E03.9 Hypothyroidism, unspecified; K21.9 Gastro-esophageal reflux disease without esophagitis; E66.9 Obesity, unspecified; J32.2 Chronic ethmoidal sinusitis; J32.0 Chronic maxillary sinusitis; T40.605A Adverse effect of unspecified narcotics, initial encounter; B96.20 Unspecified Escherichia coli [E. coli] as the cause of diseases classified elsewhere; M19.90 Unspecified osteoarthritis, unspecified site; Z96.651 Presence of right artificial knee joint; I50.9 Heart failure, unspecified; I11.0 Hypertensive heart disease with heart failure; Z96.641 Presence of right artificial hip joint; Z87.891 Personal history of nicotine dependence; Z99.81 Dependence on supplemental oxygen; Z79.51 Long term (current) use of inhaled steroids; Z79.891 Long term (current) use of opiate analgesic; Z79.82 Long term (current) use of aspirin; Z88.0 Allergy status to penicillin
CPT/HCPCS: 99223-AI; 99233-AI; 99239; A4216; J0456; J0696; J1170; J2405; J2550; J2930; J7030; J7050; J7512; Q9967

== ENCOUNTER 2019-06-10 02:01 | Inpatient (IN) | payer MEDICAID ==
[~2019-06-10] VITALS: Ht 170.2 cm; Wt 104.5 kg
[~2019-06-10 02:01] MED LIST changes: +ANTI-DIARRHEAL2 MG PO; +ANTIVERT 25MG25 MG PO; +ATARAX 10MG10 MG/TAB PO; +CUTIVATE TOP; +DALIRESP500 MCG PO; +DUREZOL 5 ML5 ML OU; +FLONASEALLERGY NS; +MUCUS RELIEF400 M1 PO; +NARCAN4 MG NS; +OMNICEF 300MG300 MG PO; +PRIL40 PO; +SYSTANE 0.4%-0.1 SOL OP; +VOLTAREN GEL 1%1 TU TP; +[UNRECOGNIZED DRUG - OTHER] TOP
[2019-06-10 04:20] LABS: BASO % 0.2 % (0.0-2.0); EOS % 0.2 % (0-4.0); GRAN # 9.1 (1.4-6.5); GRAN % 72.4 % (42.2-75.2); HEMATOCRIT 37.3 % (37.0-47.0); HEMOGLOBIN 12.1 g/dl (12.5-16.0); LYMPH # 2.5 (1.2-3.4); LYMPH % 19.9 % (20.0-51.0); MEAN CELL VOLUME 96 fl (80.0-100.0); MEAN CORPUSCULAR HEMOGLOBIN 31 pg (27.0-31.0); MEAN CORPUSCULAR HGB CONC 32 g/dl (33.0-37.0); MEAN PLATELET VOLUME 10.8 fl (7.4-10.4); MONO # 0.9 (0.1-0.6); PLATELET COUNT 253 K/mm3 (130-400); REDCELL DISTRIBUTION WIDTH-CV 15.9 % (11.5-14.5)
[2019-06-10 04:33] LABS: ALANINE AMINOTRANSFERASE 11 U/L (4-34); ALKALINE PHOSPHATASE 98 U/L (50-136); ANION GAP 8 mmol/L (7-16); AST,SGOT 15 U/L (15-37); BILIRUBIN,TOTAL 0.3 mg/dL (0.0-1.0); BLOOD UREA NITROGEN 19 mg/dL (7-17); CALCIUM 9.2 mg/dL (8.4-10.2); CARBON DIOXIDE 25 mmol/L (22-30); CHLORIDE 110 mmol/L (98-107); CREATININE, serum 0.71 (0.52-1.25); GLUCOSE 113 mg/dL (74-106); LIPASE 184 U/L (23-300); SODIUM 143 mmol/L (137-145); TOTAL PROTEIN 7.9 gm/dL (6.4-8.2)
[2019-06-10 04:49] LABS: TROPONIN-I < 0.012 ng/mL (0.000-0.035)
[2019-06-10 07:35] LABS: COLLECTION METHOD CLEAN CATCH
[2019-06-10 08:08] LABS: MUCOUS Present /lpf; PH 5 (5-8); URINE APPEARANCE Turbid; URINE BACTERIA None Seen /hpf; URINE BILIRUBIN Negative (NEGATIVE); URINE BLOOD 1+ (NEGATIVE); URINE CALCIUM OXALATE CRYSTAL Present /hpf; URINE COLOR Yellow; URINE GLUCOSE Negative (NEGATIVE); URINE KETONE Trace (NEGATIVE); URINE LEUKOCYTE ESTERASE Negative (NEGATIVE); URINE NITRATE Negative (NEGATIVE); URINE PROTEIN(semi-quant) Negative (NEGATIVE); URINE UROBILINOGEN Negative (NEGATIVE)
[2019-06-10] MEDS ORDERED: AIMOVIG AU70 MG/1 M1 SQ (11:27)
--- NOTE | 2019-06-10 11:30 | NUR ---
Pt arrived into room 356 at this time. She is A/O x4. Her breathing is even and unlabored on 5L O2 via NC. Pt denies SOB at this time. Occasional productive cough with grover sputum. Pt reports chronic pain to back, and lower ribs. No N/V at this time, requesting to eat and drink. Spoke with patient about advancing diet as tolerated, she verbalizes understanding. 24G to R foot and R hand, discussed PICC line with patient will start bolus at that time. Pt denies needs at this time. Call light within reach. Will continue to monitor.
[2019-06-10] MEDS ORDERED: AMITIZA24 MCG PO (13:32)
[2019-06-10 16:59] VITALS: BP 121/100; PULSE 100; TEMP 98.2
[2019-06-10] MEDS ORDERED: MOVANTIK25 MG PO (19:43)
[2019-06-10] MEDS ORDERED: PERCOCET 325 MG1 TAB PO (19:46)
[2019-06-10] MEDS ORDERED: STOOL SOFTENER100 M2 PO (19:47)
[2019-06-10 19:56] VITALS: BP 117/54; PULSE 102; TEMP 98.8
[2019-06-10 20:45] LABS: PROCALCITONIN 0.02 ng/mL (0.00-0.09)
[2019-06-10 23:58] VITALS: BP 124/58; PULSE 110; TEMP 98.7
[2019-06-11 04:33] VITALS: BP 105/58; PULSE 92; TEMP 99.3
--- NOTE | 2019-06-11 04:44 | NUR ---
patient has been up and down to the bathroom all night long. patient had a sandwich box around [phone] because she was hungry. patient is on hiflow NC. patient has denied any other needs. will report off to day shift upon their arrival
[2019-06-11 06:53] LABS: BASO % 0.2 % (0.0-2.0); GRAN % 74.9 % (42.2-75.2); LYMPH # 3.5 (1.2-3.4); LYMPH % 17.3 % (20.0-51.0); MEAN CORPUSCULAR HGB CONC 31 g/dl (33.0-37.0); MONO # 1.4 (0.1-0.6); MONO % 6.9 % (1.7-9.3); PLATELET COUNT 206 K/mm3 (130-400); RED BLOOD COUNT 2.94 M/mm3 (4.10-5.30); REDCELL DISTRIBUTION WIDTH-CV 16.6 % (11.5-14.5)
[2019-06-11 07:04] LABS: CREATININE, serum 0.57 (0.52-1.25); POTASSIUM 3.7 mmol/L (3.4-5.0)
[2019-06-11 07:19] LABS: HEMATOCRIT 29.9 % (37.0-47.0); MEAN CELL VOLUME 102 fl (80.0-100.0); MEAN CORPUSCULAR HEMOGLOBIN 32 pg (27.0-31.0)
[2019-06-11 07:20] LABS: HEMOGLOBIN 9.3 g/dl (12.5-16.0)
[2019-06-11 07:23] VITALS: BP 106/46; PULSE 82; TEMP 98.8
--- NOTE | 2019-06-11 07:42 | NUR ---
PA NOTIFIED OF WBC OF 20.1 AND HGB DROP FROM 12.1 TO 9.3.
--- NOTE | 2019-06-11 10:36 | NUR ---
PT IN BED, HELPED ONTO COMMODE, PT URINATED CLEAR LIQUID, MEDICATIONS GIVEN, REPORTING PAIN 8/10 IN LOWER EXTREMETIES, MUSCLE SPASM PAIN, BREAKFAST TRAY BROUGHT IN TO BEDSIDE TABLE, CALL LIGHT WITHIN REACH, WATER AT BEDSIDE, NO OTHER NEEDS AT THIS TIME. PT WANTED LIGHT OFF TO SLEEP MORE.
--- NOTE | 2019-06-11 11:07 | NUR ---
Escrow Representative contacted patient to discuss discharge planning. Patient lives in [place] with her daughter Trice. Patient's other daughter Julieta (ph#[phone]) is employed by [employer] and provides patient assistance with her ADLS. Patient sees Dr. Currie for primary care and obtains medications from [facility]. Patient is having difficulty picking up her medications and inquired if her insurance would cover medication delivery. Patient provided contact information for her piano case maker at [place], Rosalva Amaya (ph#[phone]). Patient asked SW to talk with Rosalva about obtaining a wheelchair and tub transfer bench. SW contacted Rosalva and left a voicemail. Patient uses home oxygen provided by [facility]. Patient plans to return home upon discharge. SW to continue to follow.
[2019-06-11 11:32] VITALS: BP 100/54; PULSE 82; TEMP 97.9
--- NOTE | 2019-06-11 13:07 | NUR ---
PT COMPLAINING OF 8/10 PAIN IN LEGS, ALSO COMPLAINING OF CONSTIPATION, PA NOTIFIED OF THESE COMPLAINTS.
--- NOTE | 2019-06-11 16:08 | NUR ---
PT IN BED IN ROOM WITH LIGHT OFF, PT REPORTING PAIN 10/10 IN HEAD AND MUSCLE SPASM IN LEGS. PT ALSO WONDERING WHAT SHE CAN DO FOR HER PNEUMONIA TO GET RID OF IT, INCENTIVE SPIROMETRY EDUCATION PROVIDED AND PT STATED SHE DID NOT WANT TO USE IT DUE TO HER HEADACHE.
[2019-06-11 16:17] VITALS: BP 106/56; PULSE 91; TEMP 98.5
--- NOTE | 2019-06-11 17:02 | NUR ---
PT HAVING PAIN DURING SHIFT UNRELIEVED BY PHARMACOLOGICAL INTERVENTION. EXPRESSED INTEREST IN PERFORMING ADDITIONAL ACTIVITIES SUCH MOVING TO THE CHAIR TO HELP MOVE MUCUS IN LUNGS, EDUCATED ON INCENTIVE SPIROMETRY AND PT REFUSED DUE TO HEADACHE, PT GIVEN MEDICATIONS TO HAVE A BOWEL MOVEMENT, NO BOWEL MOVEMENT DURING THIS SHIFT.
--- NOTE | 2019-06-11 17:59 | NUR ---
IV ANTIBIOTIC HUNG, PT HELPED TO BEDSIDE COMMODE REQUESTED, HELPED BACK TO BED AFTER.
--- NOTE | 2019-06-11 19:20 | NUR ---
Received report from Re. Seen patient awake, lying on bed. She is alert and oriented. With PICC on right upper arm. Assisted patient to bedside commode to urinate. On O2 at 5lpm. Bed alarm on. Call light within reach.
[2019-06-11 20:04] VITALS: BP 119/66; PULSE 96; TEMP 98.9
[2019-06-11 23:32] VITALS: BP 111/55; PULSE 95; TEMP 98.8
[2019-06-12 04:29] VITALS: BP 106/54; PULSE 87; TEMP 99.9
[2019-06-12 05:51] LABS: BASO % 0.1 % (0.0-2.0); EOS # 0.1 (0.0-0.7); EOS % 0.7 % (0-4.0); GRAN # 10.8 (1.4-6.5); GRAN % 66.4 % (42.2-75.2); HEMATOCRIT 31.6 % (37.0-47.0); HEMOGLOBIN 9.8 g/dl (12.5-16.0); MEAN CELL VOLUME 100 fl (80.0-100.0); MEAN CORPUSCULAR HEMOGLOBIN 31 pg (27.0-31.0); MEAN CORPUSCULAR HGB CONC 31 g/dl (33.0-37.0); MEAN PLATELET VOLUME 11.5 fl (7.4-10.4); MONO # 1.2 (0.1-0.6); MONO % 7.2 % (1.7-9.3); PLATELET COUNT 193 K/mm3 (130-400); RED BLOOD COUNT 3.15 M/mm3 (4.10-5.30); REDCELL DISTRIBUTION WIDTH-CV 16.5 % (11.5-14.5)
[2019-06-12 06:11] LABS: ALBUMIN 3.1 gm/dL (3.5-5.0); BILIRUBIN,TOTAL 0.2 mg/dL (0.0-1.0); CALCIUM 8.7 mg/dL (8.4-10.2); CREATININE, serum 0.56 (0.52-1.25); POTASSIUM 4.1 mmol/L (3.4-5.0); TOTAL PROTEIN 6.4 gm/dL (6.4-8.2)
--- NOTE | 2019-06-12 06:16 | NUR ---
Patient had been up frequently to urinate in the bedside commode with one assist. Still with pain on her left hip. No shortness of breath noted. Will endorse to day shift nurse.
[2019-06-12 07:31] VITALS: BP 103/57; PULSE 98; TEMP 100.1
--- NOTE | 2019-06-12 08:22 | NUR ---
Pt awake and alert this morning, PT in roon working with Pt assisted to bedside commode, shift assessments complete, left Pt bed in lowest position, call light in reach.
[2019-06-12 11:33] VITALS: BP 95/63; PULSE 95; TEMP 98.8
--- NOTE | 2019-06-12 12:50 | NUR ---
First visit from the ribbon sweatband operator. Biophysics Scientist prayed with patient per request. No other needs right now.
[2019-06-12 15:35] VITALS: BP 86/56; PULSE 53; TEMP 98.5
--- NOTE | 2019-06-12 18:19 | NUR ---
Pt resting in the room, C/O pain / discomfort in left hip and right shoulder, topical medication applied for relief, no other C/O pain. Vs have remained stable.
[2019-06-12 19:48] VITALS: BP 110/54; PULSE 75; TEMP 98.4
--- NOTE | 2019-06-12 20:30 | NUR ---
Received report from [employer]. Seen patient sitting in bed, eating her dinner. She states she feels better now than yesterday. She's trying to stand by herself to be in bedside commode. She said she wants to practice doing it on her own. Patient had a bowel movement but a urine was included as well so stool sample was not taken. On high flow O2 at 5lpm. With PICC on right upper arm.
[2019-06-13] VITALS (7 sets, daily range): BP systolic 110–129; BP diastolic 45–68; PULSE 70–98; TEMP 98–99.2
--- NOTE | 2019-06-13 06:24 | NUR ---
Patient states she feels better now. She was able to stand and walk unassisted and with use of walker only. Still with complains of pain on her left hip but not that much compared yesterday. Will endorse to day shift nurse.
[2019-06-13 06:49] LABS: BASO % 0.1 % (0.0-2.0); HEMOGLOBIN 9.4 g/dl (12.5-16.0); LYMPH # 1.6 (1.2-3.4); MEAN CELL VOLUME 99 fl (80.0-100.0); MEAN CORPUSCULAR HEMOGLOBIN 32 pg (27.0-31.0); MEAN CORPUSCULAR HGB CONC 32 g/dl (33.0-37.0); MEAN PLATELET VOLUME 12.3 fl (7.4-10.4); MONO # 0.3 (0.1-0.6); MONO % 2.3 % (1.7-9.3); PLATELET COUNT 168 K/mm3 (130-400); RED BLOOD COUNT 2.97 M/mm3 (4.10-5.30); REDCELL DISTRIBUTION WIDTH-CV 15.9 % (11.5-14.5)
[2019-06-13 06:50] LABS: HEMATOCRIT 29.5 % (37.0-47.0)
[2019-06-13 07:06] LABS: CREATININE, serum 0.63 (0.52-1.25); POTASSIUM 4.3 mmol/L (3.4-5.0)
--- NOTE | 2019-06-13 11:00 | NUR ---
PT HAD UNEVENTFUL MORINING. STATED SHE HAD A BLOODY NOSE, RT PROVIDED HUMIDITTY TO O2. STATED THAT SHE WANTED US TO STAY ON TOP OF GIVING HER THE PRN ATARAX THAT SHE TAKES ROUTINOULY AT HOME TO HELP HER SLEEP AT NIGHT. PT STILL C/O CONSTIPATION, STATED THAT THE COLACE DOES NOTHING FOR HER BUT SHE STATED SHE DIDNT FEEL THAT SHE NEEDED A SUPPOSITORY AT THIS TIME.
--- NOTE | 2019-06-13 15:44 | NUR ---
Elevator Adjuster contacted Linda Blackwell Strategic Account Executive and left a message. SW to continue to follow.
--- NOTE | 2019-06-13 17:57 | NUR ---
Report received from santos johnson. This nurse resuming cares for this shift. Pt requested voltarent gel to rt shoulder and lt hip, applied per MAR. Pt had BM, collected for GI panel. No further needs at this time. Pt on 3L HF NC.
--- NOTE | 2019-06-13 18:45 | NUR ---
Pt report recieved from Wendy RYDER at bedside. Pt is resting in bed peacefully with call light at her side. Will continue to monitor.
--- NOTE | 2019-06-14 01:18 | NUR ---
Pt has been resting in bed during the shift with no complaints of pain and remaining in stable condition with no s/s of distress noted. Pt is able to make wants/needs known and uses bedside commode independantly. Pt has had a quiet shift so far alternating between watching tv and eventually preparing for sleep. During Pt rounds the Pt has been noted to be in a restful state and easily aroused by this typewriter operator automatic. Pt remains in positive mood. Call light within reach and beverage is on the bedside table within reach. Will continue to monitor.
[2019-06-14 03:13] VITALS: BP 123/54; PULSE 95; TEMP 98.5
--- NOTE | 2019-06-14 06:18 | NUR ---
Pt had labs ordered and fish farm laborer requested this automobile service writer draw them from Pt's PICC line. Line flushed with 10cc NS, 10cc of blood wasted, 6cc of blood provided to fish farm laborer, and PICC flushed with 10cc NS. Pt tolerated well. Pt was easily aroused upon this automobile service writer entering room and turning on light. Pt remains in stable condition at this time with no s/s of distress noted and no complaints of pain or discomfort. Pt has call light at her side and has been using the bedside commode for toileting needs. Pt states that she would like some cough syrup. This automobile service writer educated Pt that shift change was about to take place and the morning meds were in the process of being passed but that this automobile service writer would either notify physician of Pt request or pass along to dayshift to notify physician that Pt would like some PRN cough syrup ordered. Will continue to monitor.
[2019-06-14 06:52] LABS: CALCIUM 9.2 mg/dL (8.4-10.2); CREATININE, serum 0.56 (0.52-1.25); POTASSIUM 4.4 mmol/L (3.4-5.0)
[2019-06-14 07:11] LABS: BASO % 0.1 % (0.0-2.0); GRAN # 8.9 (1.4-6.5); GRAN % 74.4 % (42.2-75.2); LYMPH # 2.4 (1.2-3.4); LYMPH % 20.4 % (20.0-51.0); MEAN CELL VOLUME 98 fl (80.0-100.0); MEAN CORPUSCULAR HEMOGLOBIN 31 pg (27.0-31.0); MEAN CORPUSCULAR HGB CONC 32 g/dl (33.0-37.0); MEAN PLATELET VOLUME 11.9 fl (7.4-10.4); MONO # 0.5 (0.1-0.6); MONO % 4.3 % (1.7-9.3); PLATELET COUNT 212 K/mm3 (130-400); RED BLOOD COUNT 3.18 M/mm3 (4.10-5.30); REDCELL DISTRIBUTION WIDTH-CV 15.7 % (11.5-14.5)
[2019-06-14 07:23] LABS: HEMATOCRIT 31.3 % (37.0-47.0)
[2019-06-14 08:52] VITALS: BP 111/53; PULSE 93; TEMP 98.1
[2019-06-14 12:47] VITALS: BP 122/60; PULSE 88; TEMP 97.6
[2019-06-14 16:26] VITALS: BP 119/62; PULSE 92; TEMP 98.8
--- NOTE | 2019-06-14 18:10 | NUR ---
PT HAS BEEN ON 3L OF O2 THIS DAY AND DOING WELL. PT INQUIRED ABOUT MEDS FOR THE COUGH, INFORMED HER THAT THEY STARTED HER ON MUCINEX, PT VOICED UNDERSTANDING. PT WAS ABLE TO ORDER MEALS THAT WHERE MORE APPEASING AND TOLERATED EATING THEM BETTER TODAY THEN BEFORE. NO OTHER ISSUES OR CONSERNS VOICED THIS SHIFT.
[2019-06-14 18:54] VITALS: BP 124/54; PULSE 72; TEMP 98.2
--- NOTE | 2019-06-14 21:28 | NUR ---
At time of assessment, patient is awake in bed watching TV. She is on 3L O2 and will trial BIPAP at bedtime. She complains of pain in her ribs, right shoulder, and left hip. She is alert and oriented, heart sounds are regular and normal. No edema present. Will continue to monitor.
[2019-06-14 23:44] VITALS: BP 129/54; PULSE 87
[2019-06-15 04:38] VITALS: BP 120/60; PULSE 73
--- NOTE | 2019-06-15 05:22 | NUR ---
Patient has slept for most of the night. She has tolerated CPAP well. She has not woken up due to pain or any concerns. Will continue to monitor.
[2019-06-15 06:19] LABS: BASO % 0.2 % (0.0-2.0); EOS % 0.1 % (0-4.0); GRAN # 7.2 (1.4-6.5); GRAN % 54.4 % (42.2-75.2); LYMPH # 4.7 (1.2-3.4); LYMPH % 35.4 % (20.0-51.0); MEAN CELL VOLUME 97 fl (80.0-100.0); MEAN CORPUSCULAR HGB CONC 32 g/dl (33.0-37.0); MEAN PLATELET VOLUME 10.9 fl (7.4-10.4); MONO # 1.2 (0.1-0.6); MONO % 9.2 % (1.7-9.3); PLATELET COUNT 225 K/mm3 (130-400); RED BLOOD COUNT 3.03 M/mm3 (4.10-5.30); REDCELL DISTRIBUTION WIDTH-CV 15.9 % (11.5-14.5)
[2019-06-15 06:25] LABS: HEMATOCRIT 29.5 % (37.0-47.0); HEMOGLOBIN 9.4 g/dl (12.5-16.0); MEAN CORPUSCULAR HEMOGLOBIN 31 pg (27.0-31.0)
[2019-06-15 06:26] LABS: CALCIUM 8.7 mg/dL (8.4-10.2); CREATININE, serum 0.62 (0.52-1.25); POTASSIUM 3.5 mmol/L (3.4-5.0)
[2019-06-15 08:07] VITALS: BP 113/43; PULSE 95; TEMP 98.4
[2019-06-15] MEDS ORDERED: PREDNISONE20 MG PO (10:21)
[2019-06-15] MEDS ORDERED: OMNICEF 300MG300 MG PO (10:23)
[2019-06-15] MEDS ORDERED: PROAIR HFA0.09 MG/AC IH (11:03)
[2019-06-15] MEDS ORDERED: RT ADVAIR 228 DISKUS IH (11:04)
--- NOTE | 2019-06-15 11:55 | NUR ---
DISCHARGE EDUCATION PROVIDED TO PT. CHARGE NURSE WAS INTO REMOVE PICC LINE. NO ISSUES NOTED, PT TOLERATED WELL. NO QUESTIONS VOICED UPON DISCHARGE. NURSE CASE MANAGER ESCORTING PT REUBEN VIA W/C
--- NOTE | 2019-06-16 13:16 | NUR ---
Patient discharged home over the weekend. SW spoke with Linda Blackwell Baseball Glove Stuffer who reported she will follow up with patient on obtaining a wheelchair, which Rosalva reports should be covered by Linda. Rosalva will also follow up with patient on tub transfer bench.
[2019-06-17] MEDS ORDERED: DULERA1 ARO IH (11:34)
== END 2019-06-15 12:13 | disposition home or self-care (01) | DRG 871 ==
LOC: COL.ER 02:01 → MEDICAL 08:05
PROVIDERS: Emergency Medicine; Physician Assistant; ADMIT Student in an Organized Health Care Education/Training Program
PROC: 02HV33Z Insertion of Infusion Device into Superior Vena Cava, Percutaneous Approach (ICD-10-PCS; principal; 2019-06-10)
DX: A41.9 Sepsis, unspecified organism (principal); J18.1 Lobar pneumonia, unspecified organism; J96.11 Chronic respiratory failure with hypoxia; J96.12 Chronic respiratory failure with hypercapnia; J44.0 Chronic obstructive pulmonary disease with (acute) lower respiratory infection; E87.3 Alkalosis; E87.6 Hypokalemia; I11.0 Hypertensive heart disease with heart failure; G89.29 Other chronic pain; G40.909 Epilepsy, unspecified, not intractable, without status epilepticus; F41.9 Anxiety disorder, unspecified; K59.00 Constipation, unspecified; G47.00 Insomnia, unspecified; R11.2 Nausea with vomiting, unspecified; I50.9 Heart failure, unspecified; Z87.891 Personal history of nicotine dependence
CPT/HCPCS: 99223-AI; 99232-AI; 99239; A4216; A9284; C1751; J0456; J0696; J1170; J1650; J2405; J2930; J3480; J7030; J7050; J7512

== ENCOUNTER → 2019-10-08 | Outpatient (CLI) | payer MEDICAID ==
[~2019-10-08] MED LIST changes: +AIMOVIG AU70 MG/1 M1 SQ; +AMITIZA24 MCG PO; +DULERA1 ARO IH; +MOVANTIK25 MG PO; +RT ADVAIR 228 DISKUS IH; +STOOL SOFTENER100 M2 PO
== END ==
LOC: COL.RAD 07:30
DX: Z01.812 Encounter for preprocedural laboratory examination (principal); I87.8 Other specified disorders of veins; Z98.62 Peripheral vascular angioplasty status
CPT/HCPCS: Q9967

== ENCOUNTER → 2020-06-22 | Outpatient (CLI) | payer MEDICARE, MEDICAID ==
[~2020-06-22] MED LIST changes: +CEPHALEXIN500 M1 PO
[2020-06-22 08:13] LABS: CREATININE, serum 0.6 (0.52-1.25)
== END ==
LOC: COL.RAD 06:39
PROVIDERS: Psychiatry & Neurology Neurology
DX: M51.36 Other intervertebral disc degeneration, lumbar region (principal); M48.061 Spinal stenosis, lumbar region without neurogenic claudication; Z98.890 Other specified postprocedural states

== ENCOUNTER 2020-10-04 10:57 | Emergency (ER) | payer MEDICARE, MEDICAID ==
[~2020-10-04] VITALS: Ht 170.2 cm; Wt 91.8 kg
[~2020-10-04 10:57] MED LIST changes: -CEPHALEXIN500 M1 PO
[2020-10-04 11:09] VITALS: TEMP 98.1
[2020-10-04] MEDS ORDERED: CEPHALEXIN500 M1 PO (11:39)
[2020-10-04 12:10] VITALS: BP 130/1; PULSE 80
== END 2020-10-04 12:10 | disposition home or self-care (01) ==
LOC: COL.ER 10:57
DX: K08.89 Other specified disorders of teeth and supporting structures (principal); I10 Essential (primary) hypertension; J44.9 Chronic obstructive pulmonary disease, unspecified; F41.9 Anxiety disorder, unspecified; Z87.891 Personal history of nicotine dependence; Z79.899 Other long term (current) drug therapy

== ENCOUNTER → 2020-10-05 | Outpatient (CLI) | payer MEDICARE, MEDICAID ==
[~2020-10-05] MED LIST changes: +CEPHALEXIN500 M1 PO
== END ==
LOC: COL.RAD 10:28
DX: Z01.812 Encounter for preprocedural laboratory examination (principal)
CPT/HCPCS: Q9967

== ENCOUNTER 2020-11-01 03:46 | Emergency (ER) | payer MEDICARE, MEDICAID ==
[~2020-11-01] VITALS: Ht 170.2 cm; Wt 92.3 kg
[2020-11-01 03:52] VITALS: TEMP 98.2
[2020-11-01 04:26] LABS: BASO % 0.3 % (0.0-2.0); EOS # 0.2 (0.0-0.7); EOS % 1.9 % (0-4.0); GRAN # 4.4 (1.4-6.5); GRAN % 44.5 % (42.2-75.2); HEMATOCRIT 39.7 % (37.0-47.0); HEMOGLOBIN 12.9 g/dl (12.5-16.0); LYMPH # 4.8 (1.2-3.4); MEAN CELL VOLUME 97 fl (80.0-100.0); MEAN CORPUSCULAR HEMOGLOBIN 31 pg (27.0-31.0); MEAN CORPUSCULAR HGB CONC 33 g/dl (33.0-37.0); MEAN PLATELET VOLUME 11.5 fl (7.4-10.4); MONO # 0.5 (0.1-0.6); PLATELET COUNT 208 K/mm3 (130-400); RED BLOOD COUNT 4.11 M/mm3 (4.10-5.30); REDCELL DISTRIBUTION WIDTH-CV 15.8 % (11.5-14.5)
[2020-11-01 04:38] LABS: ALANINE AMINOTRANSFERASE 13 U/L (4-34); ALBUMIN 3.6 gm/dL (3.5-5.0); ALKALINE PHOSPHATASE 73 U/L (50-136); ANION GAP 7 mmol/L (7-16); AST,SGOT 32 U/L (15-37); BILIRUBIN,TOTAL 0.4 mg/dL (0.0-1.0); BLOOD UREA NITROGEN 12 mg/dL (7-17); CALCIUM 8.9 mg/dL (8.4-10.2); CARBON DIOXIDE 26 mmol/L (22-30); CHLORIDE 108 mmol/L (98-107); CREATININE, serum 0.62 (0.52-1.25); GLUCOSE 96 mg/dL (74-106); POTASSIUM 4.8 mmol/L (3.4-5.0); SODIUM 141 mmol/L (137-145); TOTAL PROTEIN 8.2 gm/dL (6.4-8.2)
[2020-11-01 04:57] LABS: TROPONIN-I < 0.012 ng/mL (0.000-0.035)
[2020-11-01 05:14] LABS: COLLECTION METHOD CLEAN CATCH
[2020-11-01 05:29] LABS: MUCOUS Present /lpf; PH 6 (5-8); SQUAMOUS EPITHELIAL 0-2 /hpf; URINE APPEARANCE Clear; URINE BACTERIA Rare /hpf; URINE BILIRUBIN Negative (NEGATIVE); URINE BLOOD 1+ (NEGATIVE); URINE COLOR Yellow; URINE GLUCOSE Negative (NEGATIVE); URINE KETONE Negative (NEGATIVE); URINE LEUKOCYTE ESTERASE Negative (NEGATIVE); URINE NITRATE Negative (NEGATIVE); URINE PROTEIN(semi-quant) Negative (NEGATIVE); URINE UROBILINOGEN Negative (NEGATIVE); URINE WBC 0-2 /hpf
[2020-11-01 06:10] VITALS: BP 146/75; PULSE 53
== END 2020-11-01 06:30 | disposition home or self-care (01) ==
LOC: COL.ER 03:46
PROVIDERS: Emergency Medicine
DX: M54.9 Dorsalgia, unspecified (principal); J81.1 Chronic pulmonary edema; I11.0 Hypertensive heart disease with heart failure; I50.9 Heart failure, unspecified; J44.9 Chronic obstructive pulmonary disease, unspecified; G89.29 Other chronic pain; M54.5 Low back pain; Z79.899 Other long term (current) drug therapy; Z79.891 Long term (current) use of opiate analgesic; Z20.822 Contact with and (suspected) exposure to COVID-19
CPT/HCPCS: J1940; J2270; Q9967

== ENCOUNTER → 2020-12-03 | Outpatient (CLI) | payer MEDICARE, MEDICAID | LOC: COL.VAS 12:39 | DX: J44.9 Chronic obstructive pulmonary disease, unspecified (principal) ==

== ENCOUNTER → 2021-06-08 | Outpatient (CLI) | payer MEDICARE, MEDICAID | LOC: COL.PUL 10:13 | DX: R06.02 Shortness of breath (principal) ==

== ENCOUNTER → 2023-08-09 | Outpatient (CLI) | payer MEDICARE, MEDICAID ==
[~2023-08-09] MED LIST changes: +IMITREX 6M6 MG/0.5 M SQ
== END ==
LOC: MC.RAD 15:45
DX: Z12.31 Encounter for screening mammogram for malignant neoplasm of breast (principal)